=== PATIENT | female | born 1985 | race American Indian/Alaskan Native ===

== ENCOUNTER 2020-11-18 21:04 | Emergency (ER) | payer OTHER ==
[2020-11-18] MEDS ORDERED: Sodium Chloride 0.9% 10 ML Syringe FLUSH PRN (21:19)
[2020-11-18] MEDS ORDERED: Ondansetron 4 MG/2 ML SDV IVPUSH ONE (21:26)
[2020-11-18] MEDS ORDERED: Ketorolac 30 MG/ML SDV IVPUSH ONE (21:26)
[2020-11-18] MEDS ORDERED: Sodium Chloride 0.9% 1,000 ML IV STA ×2 (21:26)
--- NOTE | 2020-11-18 21:31 | EDM.PDOC ---
ED HPI GENERAL MEDICAL PROBLEM - General Chief Complaint: Headache Stated Complaint: CHEST PAIN/VOMITING/HEADACHE Time Seen by Provider: 11/18/20 21:12 Source of Information: Reports: Patient, RN Notes Reviewed History Limitations: Reports: No Limitations - History of Present Illness INITIAL COMMENTS - FREE TEXT/NARRATIVE: Patient is a 35-year-old female presenting to the emergency department with complaints of nausea, vomiting, diarrhea, headache, and chest pain. Symptoms began yesterday with headache nausea, and vomiting. Today she developed diarrhea as well as intermittent chest pain. She reports having episodes of watery diarrhea approximately every hour as well as vomiting about 4 times today. She states that whenever she tries to drink fluids she vomits. She denies any abdominal pain. She reports having a history of headaches but is never been diagnosed with migraines. She has never had a work-up to determine why she gets recurrent headaches. With regards the chest pain, she states that it comes and goes and is sharp in nature. Is worse with taking a deep breath. Denies any shortness of breath. Denies any significant cardiac history. Have a history of type 2 diabetes. She has been taking Tylenol at home for the headache with little relief. Headache Pain Score (Numeric/FACES): 10 Chest Pain Score (Numeric/FACES): 5 - Related Data Allergies Allergy/AdvReac Type Severity Reaction Status Date / Time No Known Allergies Allergy Verified 11/18/20 21:19 Home Meds: Home Meds Canagliflozin [Invokana] 300 mg PO DAILY 11/18/20 [History] Dulaglutide [Trulicity] 1 injection INJECT TH 11/18/20 [History] Ondansetron [Zofran ODT] 4 mg PO Q6H PRN #10 tab.dis 11/18/20 [Rx] Past Medical History Neurological History: Reports: Other (See Below) Other Neuro History: headaches Endocrine/Metabolic History: Reports: Diabetes, Type II - Infectious Disease History Infectious Disease History: Reports: None Social & Family History - Tobacco Use Tobacco Use Status *Q: Never Tobacco User - Caffeine Use Caffeine Use: Reports: Coffee - Recreational Drug Use Recreational Drug Use: No ED ROS GENERAL - Review of Systems Review Of Systems: See Below Constitutional: Reports: No Symptoms. Denies: Fever, Chills HEENT: Reports: No Symptoms. Denies: Vision Change Respiratory: Reports: No Symptoms Cardiovascular: Reports: Chest Pain. Denies: Lightheadedness, Palpitations Endocrine: Reports: No Symptoms GI/Abdominal: Reports: Diarrhea, Nausea, Vomiting. Denies: Abdominal Pain : Reports: No Symptoms Musculoskeletal: Reports: No Symptoms Skin: Reports: No Symptoms Neurological: Reports: Headache. Denies: Dizziness Psychiatric: Reports: No Symptoms Hematologic/Lymphatic: Reports: No Symptoms Immunologic: Reports: No Symptoms ED EXAM, GENERAL - Physical Exam Exam: See Below General Appearance: Alert, WD/WN, No Apparent Distress Eye Exam: Bilateral Eye: PERRL Respiratory/Chest: No Respiratory Distress, Lungs Clear, Normal Breath Sounds, No Accessory Muscle Use, Other (Mild tenderness to the midsternal chest wall.) Cardiovascular: Normal Peripheral Pulses, Regular Rate, Rhythm, No Edema, No Gallop, No JVD, No Murmur, No Rub GI/Abdominal: Normal Bowel Sounds, Soft, Non-Tender, No Organomegaly, No Distention, No Abnormal Bruit, No Mass Neurological: Alert, Oriented, CN II-XII Intact, Normal Cognition, Normal Gait, Normal Reflexes, No Motor/Sensory Deficits Psychiatric: Normal Affect, Normal Mood Skin Exam: Warm, Dry, Intact, Normal Color, No Rash #1 Interpretation EKG Date: 11/18/20 Time: 21:36 Rhythm: NSR Rate (Beats/Min): 107 [place]: Normal P-Wave: Present QRS: Normal ST-T: Normal QT: Normal EKG Interpretation Comments: Sinus tach at 107 Normal axis normal is No ischemia EKG interpreted by Dr. Matthews. Course - Vital Signs Last Recorded V/S: Last Vital Signs Temp 98.1 F 11/18/20 21:16 Pulse 115 H 11/18/20 21:16 Resp 20 11/18/20 21:16 BP 123/80 11/18/20 21:16 Pulse Ox 96 11/18/20 21:16 - Orders/Labs/Meds Orders: Active Orders 24 hr Category Date Time Status EKG Documentation Completion [RC] STAT Care 11/18/20 21:14 Active Peripheral IV Care [RC] . DIRECTED Care 11/18/20 21:19 Active Head wo Cont [CT] Stat Exams 11/18/20 21:25 Taken Sodium Chloride 0.9% [Saline Flush] Med 11/18/20 21:19 Active 10 ml FLUSH ASDIRECTED PRN Peripheral IV Insertion Adult [OM.PC] Stat Oth 11/18/20 21:19 Ordered Medication Orders Sodium Chloride (Sodium Chloride 0.9% 10 Ml Syringe) 10 ml FLUSH ASDIRECTED PRN PRN Reason: Keep Vein Open Last Admin: 11/18/20 21:45 Dose: 10 ml Documented by: DESTINI Labs: Laboratory Tests 11/18/20 11/18/20 11/18/20 Range/Units 21:20 21:20 21:28 WBC 10.55 H (3.98-10.04) K/mm3 RBC 5.18 (3.98-5.22) M/mm3 Hgb 16.7 H (11.2-15.7) gm/dl Hct 47.7 H (34.1-44.9) % MCV 92.1 (79.4-94.8) fl MCH 32.2 (25.6-32.2) pg MCHC 35.0 (32.2-35.5) g/dl RDW Std Deviation 43.2 (36.4-46.3) fL Plt Count 231 (182-369) K/mm3 MPV 11.1 (9.4-12.3) fl Neut % (Auto) 83.3 H (34.0-71.1) % Lymph % (Auto) 8.8 L (19.3-51.7) % [place] % (Auto) 7.2 (4.7-12.5) % Eos % (Auto) 0.3 L (0.7-5.8) Baso % (Auto) 0.2 (0.1-1.2) % Neut # (Auto) 8.79 H (1.56-6.13) K/mm3 Lymph # (Auto) 0.93 L (1.18-3.74) K/mm3 [place] # (Auto) 0.76 H (0.24-0.36) K/mm3 Eos # (Auto) 0.03 L (0.04-0.36) K/mm3 Baso # (Auto) 0.02 (0.01-0.08) K/mm3 Manual Slide Review Abnormal smear Sodium 137 (136-145) mEq/L Potassium 3.8 (3.5-5.1) mEq/L Chloride 100 (98-107) mEq/L Carbon Dioxide 20 L (21-32) mEq/L Anion Gap 20.8 H (5-15) BUN 11 (7-18) mg/dL Creatinine 0.5 L (0.55-1.02) mg/dL Est Cr Clr Drug Dosing 190.49 mL/min Estimated GFR (MDRD) > 60 (>60) mL/min BUN/Creatinine Ratio 22.0 H (14-18) Glucose 160 H (74-106) mg/dL Calcium 9.1 (8.5-10.1) mg/dL Total Bilirubin 0.7 (0.2-1.0) mg/dL AST 47 H (15-37) U/L ALT 109 H (14-59) U/L Alkaline Phosphatase 128 H (46-116) U/L Troponin I < 0.017 (0.00-0.056) ng/mL C-Reactive Protein 3.5 H* (<1.0) mg/dL Total Protein 8.5 H (6.4-8.2) g/dl Albumin 4.2 (3.4-5.0) g/dl Globulin 4.3 gm/dL Albumin/Globulin Ratio 1.0 (1-2) Urine Color (Yellow) Urine Appearance (Clear) Urine pH (5.0-8.0) Ur Specific [place] (1.005-1.030) Urine Protein (Negative) Urine Glucose (UA) (Negative) Urine Ketones (Negative) Urine Occult Blood (Negative) Urine Nitrite (Negative) Urine Bilirubin (Negative) Urine Urobilinogen (0.2-1.0) Ur Leukocyte Esterase (Negative) Urine RBC (0-5) /hpf Urine WBC (0-5) /hpf Ur Squamous Epith Cells (0-5) /hpf Urine Bacteria (FEW) /hpf Urine Mucus (FEW) /hpf Influenza Type A RNA Negative (NEGATIVE) Influenza Type B RNA Negative (NEGATIVE) SARS-CoV-2 RNA (DULCE) Negative (NEGATIVE) 11/18/20 Range/Units 22:35 WBC (3.98-10.04) K/mm3 RBC (3.98-5.22) M/mm3 Hgb (11.2-15.7) gm/dl Hct (34.1-44.9) % MCV (79.4-94.8) fl MCH (25.6-32.2) pg MCHC (32.2-35.5) g/dl RDW Std Deviation (36.4-46.3) fL Plt Count (182-369) K/mm3 MPV (9.4-12.3) fl Neut % (Auto) (34.0-71.1) % Lymph % (Auto) (19.3-51.7) % [place] % (Auto) (4.7-12.5) % Eos % (Auto) (0.7-5.8) Baso % (Auto) (0.1-1.2) % Neut # (Auto) (1.56-6.13) K/mm3 Lymph # (Auto) (1.18-3.74) K/mm3 [place] # (Auto) (0.24-0.36) K/mm3 Eos # (Auto) (0.04-0.36) K/mm3 Baso # (Auto) (0.01-0.08) K/mm3 Manual Slide Review Sodium (136-145) mEq/L Potassium (3.5-5.1) mEq/L Chloride (98-107) mEq/L Carbon Dioxide (21-32) mEq/L Anion Gap (5-15) BUN (7-18) mg/dL Creatinine (0.55-1.02) mg/dL Est Cr Clr Drug Dosing mL/min Estimated GFR (MDRD) (>60) mL/min BUN/Creatinine Ratio (14-18) Glucose (74-106) mg/dL Calcium (8.5-10.1) mg/dL Total Bilirubin (0.2-1.0) mg/dL AST (15-37) U/L ALT (14-59) U/L Alkaline Phosphatase (46-116) U/L Troponin I (0.00-0.056) ng/mL C-Reactive Protein (<1.0) mg/dL Total Protein (6.4-8.2) g/dl Albumin (3.4-5.0) g/dl Globulin gm/dL Albumin/Globulin Ratio (1-2) Urine Color Yellow (Yellow) Urine Appearance Clear (Clear) Urine pH 6.0 (5.0-8.0) Ur Specific [place] 1.020 (1.005-1.030) Urine Protein Negative (Negative) Urine Glucose (UA) 2+ H (Negative) Urine Ketones 3+ H (Negative) Urine Occult Blood Negative (Negative) Urine Nitrite Negative (Negative) Urine Bilirubin Negative (Negative) Urine Urobilinogen 0.2 (0.2-1.0) Ur Leukocyte Esterase Negative (Negative) Urine RBC 0-5 (0-5) /hpf Urine WBC 0-5 (0-5) /hpf Ur Squamous Epith Cells 0-5 (0-5) /hpf Urine Bacteria Occasional (FEW) /hpf Urine Mucus Not seen (FEW) /hpf Influenza Type A RNA (NEGATIVE) Influenza Type B RNA (NEGATIVE) SARS-CoV-2 RNA (DULCE) (NEGATIVE) Meds: Medications Generic Name Dose Route Start Last Admin Trade Name Freq PRN Reason Stop Dose Admin Sodium Chloride 10 ml 11/18/20 21:19 11/18/20 21:45 Sodium Chloride 0.9% 10 Ml Syringe FLUSH 10 ml ASDIRECTED PRN Administration Keep Vein Open Discontinued Medications Generic Name Dose Route Start Last Admin Trade Name Freq PRN Reason Stop Dose Admin Hydromorphone HCl 0.5 mg 11/18/20 22:45 11/18/20 22:56 Hydromorphone 0.5 Mg/0.5 Ml Syringe IVPUSH 11/18/20 22:46 0.5 mg ONETIME ONE Administration Sodium Chloride 1,000 mls @ 999 mls/hr 11/18/20 21:26 11/18/20 21:51 Normal Saline IV 11/18/20 22:26 Not Given NOW STA Sodium Chloride 1,000 mls @ 999 mls/hr 11/18/20 21:26 11/18/20 21:45 Normal Saline IV 11/18/20 22:26 999 mls/hr NOW STA Administration Ketorolac Tromethamine 30 mg 11/18/20 21:26 11/18/20 21:46 Ketorolac 30 Mg/Ml Sdv IVPUSH 11/18/20 21:27 30 mg ONETIME ONE Administration Ondansetron HCl 4 mg 11/18/20 21:26 11/18/20 21:46 Ondansetron 4 Mg/2 Ml Sdv IVPUSH 11/18/20 21:27 4 mg ONETIME ONE Administration Ondansetron HCl 4 mg 11/18/20 22:59 11/18/20 23:04 Ondansetron 4 Mg Tab.Dis PO 11/18/20 23:00 4 mg ONETIME ONE Administration - Re-Assessments/Exams Free Text/Narrative Re-Assessment/Exam: 11/18/20 22:46 You have significant for WBC minimally elevated at 10.55, CO2 20, anion gap 20.8, glucose 116, AST 47, ALT 109, alkaline phosphatase 128, CRP 3.5. Troponin is negative. Covid, influenza are both negative. Head CT shows no intracranial abnormalities. EKG shows no acute ischemia. Troponin is negative. Patient is feeling better, however still has a mild posterior headache. I have ordered Dilaudid 0.5 mg IV to be given. Urinalysis results are pending. 11/18/20 23:03 Patient is feeling better. Urinalysis shows no signs of infection. We will discharge her home with a prescription for Zofran and instructions to follow-up with her primary care in 1 week to have her liver enzymes rechecked. Discharge instructions as documented. Departure - Departure Time of Disposition: 23:03 Disposition: Home, Self-Care 01 Condition: Good Clinical Impression: Gastroenteritis Headache Qualifiers: Headache type: unspecified Headache chronicity pattern: acute headache Intractability: not intractable Qualified Code(s): R51.9 - Headache, unspecified - Discharge Information *PRESCRIPTION DRUG MONITORING PROGRAM REVIEWED*: No *COPY OF PRESCRIPTION DRUG MONITORING REPORT IN PATIENT BUD: No Prescriptions: Ondansetron [Zofran ODT] 4 mg PO Q6H PRN #10 tab.dis PRN Reason: Nausea/Vomiting Instructions: General Headache Without Cause, [id number] Referrals: PCP,None [Primary Care Provider] - Forms: ED Department Discharge, ED Return to Work/School Form Additional Instructions: You were seen in the emergency department today for evaluation with regards to nausea, vomiting, headache, and intermittent chest pain. Work-up included blood work, urinalysis, and EKG of your heart, and a CT scan of your head. Results of your work-up show that you were dehydrated. He did have a minor elevation in your liver enzymes as well. Your work-up was otherwise normal. Head CT was normal as well as was your cardiac work-up. While in the ER, you received IV fluids, pain medications, and nausea medications. A prescription for Zofran for nausea has been sent to [facility]. Use this medication as prescribed for nausea. Recommend clear liquid diet for the next 24 to 72 hours and then slowly advance as tolerated. I would recommend follow-up with your primary care provider in approximately 1 week to have your blood work rechecked and ensure that these liver enzymes returned to normal. If you should experience any new or worsening symptoms, please do not hesitate to return to the emergency department for reevaluation. Sepsis Event Note (ED) - Evaluation Sepsis Screening Result: No Definite Risk - Focused Exam Vital Signs: Vital Signs Temp Pulse Resp BP Pulse Ox 11/18/20 21:16 98.1 F 115 H 20 123/80 96 - My Orders Last 24 Hours: My Active Orders 11/18/20 21:14 EKG Documentation Completion [RC] STAT 11/18/20 21:19 Peripheral IV Care [RC] . DIRECTED Sodium Chloride 0.9% [Saline Flush] 10 ml FLUSH ASDIRECTED PRN Peripheral IV Insertion Adult [OM.PC] Stat 11/18/20 21:25 Head wo Cont [CT] Stat - Assessment/Plan Last 24 Hours: My Active Orders 11/18/20 21:14 EKG Documentation Completion [RC] STAT 11/18/20 21:19 Peripheral IV Care [RC] . DIRECTED Sodium Chloride 0.9% [Saline Flush] 10 ml FLUSH ASDIRECTED PRN Peripheral IV Insertion Adult [OM.PC] Stat 11/18/20 21:25 Head wo Cont [CT] Stat
[2020-11-18 22:11] LABS: CORONAVIRUS COVID-19 NAA NEGATIVE (NEGATIVE)
[2020-11-18] MEDS ORDERED: HYDROmorphone 0.5 MG/0.5 ML Syringe IVPUSH ONE (22:45)
[2020-11-18] MEDS ORDERED: Ondansetron 4 MG Tab.DIS PO ONE (22:59)
--- NOTE | 2020-11-19 08:30 | CT ---
Head CT Technique: Multiple axial sections through the brain were obtained. Intravenous contrast was not utilized. Reconstructed coronal and sagittal images were obtained. Comparison: No prior intracranial imaging is available. Findings: Ventricles along with basal cisterns and sulci over the convexities are within normal limits for the patient's age. No abnormal parenchymal densities are seen. No evidence of intracranial hemorrhage. No midline shift or mass-effect is seen. Bone window settings were reviewed. Visualized paranasal sinuses and mastoid sinuses show nothing acute. No acute calvarial finding is appreciated. Impression: 1. Nothing acute is appreciated on noncontrast head CT study. Diagnostic code #1 I agree with preliminary report from [facility], finalized on 11/18/20, 11:33 PM CDT
== END 2020-11-18 23:22 | disposition home or self-care (01) ==
LOC: JD.ED 21:04
DX: K52.9 Noninfective gastroenteritis and colitis, unspecified (principal); R51.9 Headache, unspecified; E11.9 Type 2 diabetes mellitus without complications; Z79.84 Long term (current) use of oral hypoglycemic drugs; Z20.822 Contact with and (suspected) exposure to COVID-19
CPT/HCPCS: 0240U; 36415; 70450; 80053; 81001; 84484; 85025; 86140; 93005; 96374; 96375; 99285; A9270; J1170; J1885; J2405; J7030; 93010; 99284